=== PATIENT | male | born 1970 | race Two or more races ===

== ENCOUNTER → 2018-11-28 | Outpatient (CLI) | payer BC ==
[~2018-11-28] MED LIST: FLOMAX PO; TYLENOL WITH C1 EACH PO
--- NOTE | 2018-11-28 14:54 | Diagnostic Imaging Report ---
EXAM: CT Abdomen and Pelvis WITHOUT intravenous contrast INDICATION: Right flank pain. COMPARISON: None. TECHNIQUE: Abdomen and pelvis were scanned utilizing a multidetector helical scanner from the lung base to the pubic symphysis without administration of IV contrast. Coronal and sagittal reformations were obtained. IV CONTRAST: None ORAL CONTRAST: None COMPLICATIONS: None RADIATION DOSE: Total DLP: 695.0 mGy*cm Dose modulation, iterative reconstruction, and/or weight based adjustment of the mA/kV was utilized to reduce the radiation dose to as low as reasonably achievable. FINDINGS: LOWER THORAX: Normal. HEPATOBILIARY: No focal liver lesion. Cholelithiasis with no CT evidence of cholecystitis. SPLEEN: No splenomegaly. PANCREAS: No focal masses or ductal dilatation. ADRENALS: No adrenal nodules. KIDNEYS/URETERS: 9 mm proximal right ureteral calculus with resulting mild right hydronephrosis. Additional 2 mm right midpole renal calculus. No left renal calculi. No left hydronephrosis. PELVIC ORGANS/BLADDER: Unremarkable. PERITONEUM / RETROPERITONEUM: No free air or fluid. LYMPH NODES: No lymphadenopathy. VESSELS: Unremarkable. GI TRACT: Mild colonic diverticulosis. No CT evidence of diverticulitis. No abnormal bowel wall thickening. No bowel obstruction. Normal appendix. The stomach is distended and filled with food. BONES AND SOFT TISSUES: No acute osseous injury. No suspicious lytic or blastic lesions. No substantial degenerative change. IMPRESSION: 9 mm proximal right ureter calculus with resulting mild right hydronephrosis. 2 mm right midpole renal calculus. No left renal calculi or hydronephrosis. Findings communicated to Bakari Jarquin NP at 2:48PM on 11/28/2018. Signed by: Nathalie Gaston MD on 11/28/2018 2:50 PM
== END ==
LOC: CT 13:28
PROVIDERS: ATTEND Urology
DX: N20.0 Calculus of kidney (principal)
CPT/HCPCS: 74176

== ENCOUNTER → 2018-11-30 | Day surgery (SDC) | payer BC ==
[~2018-11-30] MED LIST changes: +B&O 60MG R/S 60 MG SUPP PR ONE; +CEFAZOLIN SOD 1 GM/NS 50ML 100 ML IV ONE; +DEXAMETHASONE SOD PHOS INJ 4 MG/ML VIAL ONE; +FENTANYL CITRATE/PF 100MCG/2 ML INJ ONE; +IOPAMIDOL 610MG/1ML 300 MG/ML VIAL IV ONE; +LIDOCAINE HCL 2% LOCAL INJ 5 ML SDV VIAL INJ ONE; +MIDAZOLAM HCL 2 MG/2 ML VIAL ONE; +ONDANSETRON HCL INJ 2MG/ML 2ML 2 MG/ML VIAL ONE; +PROPOFOL IV EMULSION 10 MG/ML 20 ML VIAL ONE; +SEVOFLURANE INHAL SOLN 250 ML PEN BTL ONE
--- OUTSIDE RECORDS SUMMARY | 2018-11-30 09:19 | XMS REPORT ---
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 Allergies, Adverse Reactions, Alerts This patient has no known allergies or adverse reactions. Medications This patient has no known medications. Results Test Description Test Time Test Comments Text Results Atomic Results Result Comments CT ABDOMEN/PELVIS WO 2018-11-28 14:45:00 [facility] [address] [address] Patient Name: CARLOS FLYNN MR #: [id number] : 1970 Age/Sex: 48/M Req #: [id number] [facility] Physician: Ordered by: VARGHESE LAWRENCE MD Report #: [id number] Location: CT Room/Bed: Procedure: [id number] CT/CT ABDOMEN/PELVIS WO Exam Date: 11/28/18 Exam Time: 1350 REPORT STATUS: Signed EXAM: CT Abdomen and Pelvis WITHOUT intravenous contrast INDICATION: Right flank pain. COMPARISON: None. TECHNIQUE: Abdomen and pelvis were scanned utilizing a multidetector helical scanner from the lung base to the pubic symphysis without administration of IV contrast. Coronal and sagittal reformations were obtained. IV CONTRAST: None ORAL CONTRAST: None COMPLICATIONS: None RADIATION DOSE: Total DLP: 695.0 mGy*cm Dose modulation, iterative reconstruction, and/or weight based adjustment of the mA/kV was utilized to reduce the radiation dose to as low as reasonably achievable. FINDINGS: LOWER THORAX: Normal. HEPATOBILIARY: No focal liver lesion. Cholelithiasis with no CT evidence of cholecystitis. SPLEEN: No splenomegaly. PANCREAS: No focal masses or ductal dilatation. ADRENALS: No adrenal nodules. KIDNEYS/URETERS: 9 mm proximal right ureteral calculus with resulting mild right hydronephrosis. Additional 2 mm right midpole renal calculus. No left renal calculi. No left hydronephrosis. PELVIC ORGANS/BLADDER: Unremarkable. PERITONEUM / RETROPERITONEUM: No free air or fluid. LYMPH NODES: No lymphadenopathy. VESSELS: Unremarkable. GI TRACT: Mild colonic diverticulosis. No CT evidence of diverticulitis. No abnormal bowel wall thickening. No bowel obstruction. Normal appendix. The stomach is distended and filled with food. BONES AND SOFT TISSUES: No acute osseous injury. No suspicious lytic or blastic lesions. No substantial degenerative change. IMPRESSION: 9 mm proximal right ureter calculus with resulting mild right hy dronephrosis. 2 mm right midpole renal calculus. No left renal calculi or hydronephrosis. Findings communicated to Bakari Jarquin NP at 2:48PM on 11/28/2018. Signed by: Anne Guerra MD on 11/28/2018 2:50 PM Dictated By: ANNE GUERRA MD [id number] Transcribed By: CHRISTIANO on 11/28/18 1450 COPY TO: VARGHESE LAWRENCE MD
[2018-11-30 12:00] VITALS: BP 121/88
--- NOTE | 2018-11-30 20:08 | Operative Report ---
DATE OF PROCEDURE: 11/30/2018 SURGEON: Taylor Berrios MD SERVICE: Urology. PREOPERATIVE DIAGNOSES: 1. Right renal colic. 2. Nephrolithiasis. 3. Ureterolithiasis. 4. Hydronephrosis. 5. Microhematuria. POSTOPERATIVE DIAGNOSES: 1. Right renal colic. 2. Nephrolithiasis. 3. Ureterolithiasis. 4. Hydronephrosis. 5. Microhematuria. OPERATIONS PERFORMED: 1. Cystoscopy and left retrograde pyelogram done with different instruments, not related to the other side, done as part of the evaluation for hematuria. 2. Right retrograde pyelograms under fluoroscopic control, manipulation of stone and placement of the wire by the stone. 3. Placement of double-J stent 6-Azeri x 26 cm long on the right side. 4. Interpretation of x-ray. 5. Supervision of fluoroscopy. RAPIER INSERTION LOOM FIXER: None. ANESTHESIA: General. CLINICAL INDICATION NOTE: This is a 48-year-old patient, who presented with acute renal colic on the right side, was found to have a large blocking stone in the upper ureter in addition to small calculus in the kidney on the right side. The patient was brought for placement of double-J stent. Description of the procedure was discussed with the patient, potential benefits and complications discussed, explained, and accepted. DESCRIPTION OF PROCEDURE AND FINDINGS: After appropriate level of anesthesia was achieved, the patient was placed in lithotomy position, prepped and draped in the usual sterile fashion. Urethra inspected, it was unremarkable except for some minimally and narrow area in the bulbous urethra. The bladder itself was normal. No tumor or foreign bodies were identified. Open-ended catheter was inserted to the left side and retrograde pyelogram demonstrated a normal ureter and upper collecting system, no hydro. Following this, open-ended catheter inserted to the right side. There was a very high level obstructing stone in the upper ureter and significant hydro above it. Only small amount of contrast was passing. The guide wire was inserted, it was possible to manipulate the stone a little bit up and this allowed to pass the wire above it. Open-ended catheter was also pushed above it. Following this, the wire was kept in place and retrograde pyelogram was ended and open-ended catheter was then removed and a 6-Azeri x 26 cm long double-J stent was manipulated up above the stone into the renal pelvis. The proper position of this was verified by x-ray and endoscopy. Bladder was then irrigated. The scope was removed. B and O suppositories were inserted. The patient was transferred in satisfactory condition to the recovery room. He will be followed by Dr. Jose Berrios. MD SEBASTIÁN Christensen/FEDERICO /[id number]
== END | disposition home or self-care (01) ==
LOC: OR 09:16
PROVIDERS: ATTEND Urology
DX: N20.1 Calculus of ureter (principal); N20.0 Calculus of kidney; N13.30 Unspecified hydronephrosis; R80.9 Proteinuria, unspecified; R39.13 Splitting of urinary stream; R06.83 Snoring; R00.1 Bradycardia, unspecified; Z87.891 Personal history of nicotine dependence
CPT/HCPCS: 52332; 74420; 93005; C1758; C2617; J0690; J1100; J2001; J2250; J2405; J2704; J3010; Q9967

== ENCOUNTER 2021-06-03 11:36 | Observation (INO) | payer BC ==
[~2021-06-03] VITALS: Ht 175.3 cm; Wt 102.1 kg
[~2021-06-03 11:36] MED LIST changes: -B&O 60MG R/S 60 MG SUPP PR ONE; -CEFAZOLIN SOD 1 GM/NS 50ML 100 ML IV ONE; -DEXAMETHASONE SOD PHOS INJ 4 MG/ML VIAL ONE; -FENTANYL CITRATE/PF 100MCG/2 ML INJ ONE; -IOPAMIDOL 610MG/1ML 300 MG/ML VIAL IV ONE; -LIDOCAINE HCL 2% LOCAL INJ 5 ML SDV VIAL INJ ONE; -MIDAZOLAM HCL 2 MG/2 ML VIAL ONE; -ONDANSETRON HCL INJ 2MG/ML 2ML 2 MG/ML VIAL ONE; -PROPOFOL IV EMULSION 10 MG/ML 20 ML VIAL ONE; -SEVOFLURANE INHAL SOLN 250 ML PEN BTL ONE
[2021-06-03] MEDS ORDERED: SODIUM CHLORIDE 0.9% 1000ML 1,000 ML IV STA (11:38)
[2021-06-03] MEDS ORDERED: KETOROLAC TROMETHAMINE 30 MG/ML VIAL IV STA (11:41)
[2021-06-03] MEDS ORDERED: ONDANSETRON HCL INJ 2MG/ML 2ML 2 MG/ML VIAL IV STA (11:41)
[2021-06-03 12:06] LABS: BASOPHILS % 0.3 % (0.0-1.0); EOSINOPHILS % 0.1 % (0.0-6.0); HEMATOCRIT 41.4 % (38.2-49.6); HEMOGLOBIN 12.9 g/dL (14.0-18.0); LYMPHOCYTES # (AUTO) 0.9 (1.0-3.2); LYMPHOCYTES % 10.6 % (18.0-39.1); MEAN CORPUSCULAR HEMOGLOBIN 30.4 pg (28-32); MEAN CORPUSCULAR HGB CONC 31.2 g/dL (31-35); MEAN CORPUSCULAR VOLUME 97.4 fL (81-99); MONOCYTES # (AUTO) 0.6 (0.2-0.8); MONOCYTES % 6.5 % (4.4-11.3); NEUTROPHILS # (AUTO) 7.1 (2.1-6.9); NEUTROPHILS % 82.2 % (38.7-80.0); PLATELET COUNT 129 x10e3/uL (140-360); RED BLOOD COUNT 4.25 x10e6/uL (4.3-5.7); RED CELL DISTRIBUTION WIDTH 12.7 % (11.7-14.4)
[2021-06-03 12:15] LABS: CLARITY,URINE CLEAR (CLEAR); COLOR,URINE YELLOW (YELLOW); KETONES,URINE NEGATIVE (NEGATIVE); LEUKOCYTE ESTERASE ,URINE NEGATIVE (NEGATIVE); NITRITE,URINE NEGATIVE (NEGATIVE); PROTEIN,URINE DIPSTICK TRACE (NEGATIVE); URINE UROBILINOGEN 0.2 mg/dL (0.2 - 1)
[2021-06-03 12:25] LABS: BACTERIA,URINE FEW /HPF; EPITHELIAL CELLS,URINE RARE /LPF; WBC,URINE (MAN) 0-5 /HPF (0-5)
[2021-06-03 12:27] LABS: ALBUMIN 4.4 g/dL (3.5-5.0); ALBUMIN/GLOBULIN RATIO 1.2 (0.8-2.0); ANION GAP 15.9 mmol/L (8-16); CALCIUM 9.5 mg/dL (8.4-10.2); CREATININE, SERUM 1.53 mg/dL (0.72-1.25); POTASSIUM 3.9 mmol/L (3.5-5.1)
[2021-06-03] MEDS ORDERED: ONDANSETRON HCL INJ 2MG/ML 2ML 2 MG/ML VIAL IV PRN (13:45)
[2021-06-03] MEDS ORDERED: Morphine 4mg Syringe 4 MG/ML INJ IV PRN (13:45)
[2021-06-03] MEDS: CEFTRIAXONE 1 GM in SODIUM CHLORIDE 0.9% 50ML 50 ML IV SCH (14:08)
[2021-06-03] MEDS: SODIUM CHLORIDE 0.9% 1000ML 1,000 ML IV SCH ×2 (14:44→23:10)
[2021-06-03 16:50] VITALS: BP 173/97
[2021-06-03 17:04] VITALS: BP 145/80
[2021-06-03 20:00] VITALS: BP 131/69
[2021-06-03 23:08] VITALS: BP 131/69
[2021-06-04] VITALS: BP 128/84
[2021-06-04] MEDS: CEFTRIAXONE 1 GM in SODIUM CHLORIDE 0.9% 50ML 50 ML IV SCH (03:40)
[2021-06-04 04:00] VITALS: BP 117/77
[2021-06-04 05:09] LABS: BASOPHILS % 0.7 % (0.0-1.0); EOSINOPHILS # (AUTO) 0.1 (0.0-0.4); EOSINOPHILS % 2.6 % (0.0-6.0); HEMATOCRIT 35.4 % (38.2-49.6); HEMOGLOBIN 11.1 g/dL (14.0-18.0); LYMPHOCYTES # (AUTO) 1.7 (1.0-3.2); LYMPHOCYTES % 31.3 % (18.0-39.1); MEAN CORPUSCULAR HEMOGLOBIN 30.2 pg (28-32); MEAN CORPUSCULAR HGB CONC 31.4 g/dL (31-35); MEAN CORPUSCULAR VOLUME 96.2 fL (81-99); MONOCYTES # (AUTO) 0.5 (0.2-0.8); MONOCYTES % 8.8 % (4.4-11.3); NEUTROPHILS # (AUTO) 3.1 (2.1-6.9); NEUTROPHILS % 56.2 % (38.7-80.0); PLATELET COUNT 102 x10e3/uL (140-360); RED BLOOD COUNT 3.68 x10e6/uL (4.3-5.7); RED CELL DISTRIBUTION WIDTH 12.6 % (11.7-14.4)
[2021-06-04] MEDS: SODIUM CHLORIDE 0.9% 1000ML 1,000 ML IV SCH (05:45)
[2021-06-04 06:03] LABS: ALBUMIN 3.4 g/dL (3.5-5.0); ALBUMIN/GLOBULIN RATIO 1.2 (0.8-2.0); ANION GAP 12.5 mmol/L (8-16); CALCIUM 8.6 mg/dL (8.4-10.2); CREATININE, SERUM 1.14 mg/dL (0.72-1.25); POTASSIUM 3.5 mmol/L (3.5-5.1)
[2021-06-04] MEDS ORDERED: BELLADONNA/OPIUM 30 MG SUPP RC ONE (06:31)
[2021-06-04] MEDS ORDERED: IOPAMIDOL 300MG/ML 50ML INFUS..BTL IV ONE (06:31)
[2021-06-04 08:38] VITALS: BP 137/88
[2021-06-04] MEDS ORDERED: PHENAZOPYRIDINE HCL 100 MG TAB PO PRN (09:00)
[2021-06-04] MEDS ORDERED: ACETAMINOPHEN/CODEINE 300MG - 30MG TAB PO PRN (09:00)
[2021-06-04] MEDS ORDERED: B&O 60MG R/S 60 MG SUPP PR PRN (09:15)
[2021-06-04] MEDS ORDERED: DITROPAN XL5 MG PO (09:37)
[2021-06-04] MEDS ORDERED: PYRIDIUM200 MG PO (09:38)
[2021-06-04] MEDS ORDERED: GLYCOPYRROLATE INJ 0.2 MG/ML VIAL ONE (12:13)
[2021-06-04] MEDS ORDERED: SEVOFLURANE INHAL SOLN 250 ML PEN BTL ONE (12:13)
[2021-06-04] MEDS ORDERED: LIDOCAINE HCL 2% LOCAL INJ 5 ML SDV VIAL INJ ONE (12:13)
[2021-06-04] MEDS ORDERED: POVIDONE IODINE 0.05% 0.05 % ML PO ONE (12:13)
[2021-06-04] MEDS ORDERED: PROPOFOL IV EMULSION 10 MG/ML 20 ML VIAL ONE (12:13)
[2021-06-04] MEDS ORDERED: ONDANSETRON HCL INJ 2MG/ML 2ML 2 MG/ML VIAL ONE (12:13)
[2021-06-04] MEDS ORDERED: DEXAMETHASONE SOD PHOS INJ 4 MG/ML SDV ONE (12:13)
[2021-06-04] MEDS ORDERED: FENTANYL CITRATE/PF 100MCG/2 ML INJ ONE (12:47)
[2021-06-04] MEDS ORDERED: MIDAZOLAM HCL 2 MG/2 ML VIAL ONE (12:47)
== END 2021-06-04 10:29 | disposition home or self-care (01) ==
LOC: ER 11:39 → ERHOLD 13:41 → MED/SURG2 15:37
PROVIDERS: ADMIT Internal Medicine; ATTEND Internal Medicine
DX: N13.2 Hydronephrosis with renal and ureteral calculous obstruction (principal); Z87.442 Personal history of urinary calculi; Z96.0 Presence of urogenital implants; R31.29 Other microscopic hematuria; D64.9 Anemia, unspecified; Z20.822 Contact with and (suspected) exposure to COVID-19; Z87.891 Personal history of nicotine dependence; N17.9 Acute kidney failure, unspecified; N18.9 Chronic kidney disease, unspecified; E66.9 Obesity, unspecified; Z68.32 Body mass index [BMI] 32.0-32.9, adult
CPT/HCPCS: 36415 ×2; 52356; 74176; 74420; 80053 ×2; 81001; 83970; 84550; 85025 ×2; 87086; 88300; 94799 ×2; 96360; 99284; C1758; C1769; C2617; G0378 ×2; J0696; J1100; J1885; J2001; J2250; J2405 ×2; J2704; J3010; J7030 ×2; Q9967; U0002

== ENCOUNTER → 2021-06-29 | Day surgery (SDC) | payer BC ==
[2021-06-26 11:10] LABS: BASOPHILS # (AUTO) 0.1 (0.0-0.1); EOSINOPHILS # (AUTO) 0.2 (0.0-0.4); HEMATOCRIT 40.4 % (38.2-49.6); LYMPHOCYTES # (AUTO) 1.9 (1.0-3.2); LYMPHOCYTES % 37.3 % (18.0-39.1); MEAN CORPUSCULAR HEMOGLOBIN 30.9 pg (28-32); MEAN CORPUSCULAR HGB CONC 32.2 g/dL (31-35); MONOCYTES # (AUTO) 0.4 (0.2-0.8); MONOCYTES % 8.1 % (4.4-11.3); NEUTROPHILS # (AUTO) 2.5 (2.1-6.9); NEUTROPHILS % 50.2 % (38.7-80.0); PLATELET COUNT 126 x10e3/uL (140-360); RED BLOOD COUNT 4.21 x10e6/uL (4.3-5.7); RED CELL DISTRIBUTION WIDTH 12.6 % (11.7-14.4)
[2021-06-26 11:28] LABS: ANION GAP 12.1 mmol/L (8-16); CALCIUM 9.9 mg/dL (8.4-10.2); CREATININE, SERUM 0.89 mg/dL (0.72-1.25); POTASSIUM 4.1 mmol/L (3.5-5.1)
[~2021-06-29] MED LIST changes: +B&O 60MG R/S 60 MG SUPP PR ONE; +CEFTRIAXONE 1 GM VIAL ONE; +DITROPAN XL5 MG PO; +FENTANYL CITRATE/PF 100MCG/2 ML INJ ONE; +IOPAMIDOL 300MG/ML 50ML INFUS..BTL IV ONE; +KETOROLAC TROMETHAMINE 30 MG/ML VIAL ONE; +MIDAZOLAM HCL 2 MG/2 ML VIAL ONE; +PYRIDIUM200 MG PO
[2021-06-29 09:00] VITALS: BP 126/91
== END | disposition home or self-care (01) ==
LOC: OR 06:14
PROVIDERS: ATTEND Urology
DX: Z46.6 Encounter for fitting and adjustment of urinary device (principal); N20.0 Calculus of kidney; N40.0 Benign prostatic hyperplasia without lower urinary tract symptoms; N28.89 Other specified disorders of kidney and ureter; R00.1 Bradycardia, unspecified; Z01.810 Encounter for preprocedural cardiovascular examination; Z01.812 Encounter for preprocedural laboratory examination; Z01.818 Encounter for other preprocedural examination; Z20.822 Contact with and (suspected) exposure to COVID-19
CPT/HCPCS: 36415; 52352; 74018; 74420; 80048; 84550; 85025; 93005; C1769; J0696; J1885; J2250; J3010; Q9967; U0002

== ENCOUNTER → 2021-11-25 | Outpatient (CLI) | payer BC ==
[~2021-11-25] MED LIST changes: -B&O 60MG R/S 60 MG SUPP PR ONE; -CEFTRIAXONE 1 GM VIAL ONE; -FENTANYL CITRATE/PF 100MCG/2 ML INJ ONE; -IOPAMIDOL 300MG/ML 50ML INFUS..BTL IV ONE; -KETOROLAC TROMETHAMINE 30 MG/ML VIAL ONE; -MIDAZOLAM HCL 2 MG/2 ML VIAL ONE
== END ==
LOC: RAD 15:14
PROVIDERS: ATTEND Urology
DX: N20.0 Calculus of kidney (principal)
CPT/HCPCS: 74018

== ENCOUNTER → 2024-02-23 | Outpatient (REF) | payer OTHER | LOC: RAD 15:35 | PROVIDERS: ATTEND Urology | DX: N20.0 Calculus of kidney (principal) | CPT/HCPCS: 74018 ==

== ENCOUNTER → 2024-06-29 | Day surgery (SDC) | payer OTHER ==
[2024-06-28 14:22] LABS: BASOPHILS % 0.6 % (0.0-1.0); EOSINOPHILS # (AUTO) 0.1 (0.0-0.4); EOSINOPHILS % 2.6 % (0.0-6.0); HEMATOCRIT 39.1 % (38.2-49.6); LYMPHOCYTES # (AUTO) 1.7 (1.0-3.2); LYMPHOCYTES % 33.8 % (18.0-39.1); MEAN CORPUSCULAR HEMOGLOBIN 30.8 pg (28-32); MEAN CORPUSCULAR HGB CONC 33.2 g/dL (31-35); MEAN CORPUSCULAR VOLUME 92.7 fL (81-99); MONOCYTES # (AUTO) 0.5 (0.2-0.8); MONOCYTES % 9.3 % (4.4-11.3); NEUTROPHILS # (AUTO) 2.7 (2.1-6.9); NEUTROPHILS % 53.5 % (38.7-80.0); PLATELET COUNT 118 x10e3/uL (140-360); RED BLOOD COUNT 4.22 x10e6/uL (4.3-5.7); RED CELL DISTRIBUTION WIDTH 12.6 % (11.7-14.4); WHITE BLOOD COUNT 5.03 x10e3/uL (4.8-10.8)
[2024-06-28 14:47] LABS: ANION GAP 12.9 mmol/L (8-16); CALCIUM 9.5 mg/dL (8.4-10.2); CREATININE, SERUM 0.89 mg/dL (0.72-1.25); POTASSIUM 3.9 mmol/L (3.5-5.1); URIC ACID 5.8 mg/dL (4.8-8.0)
[~2024-06-29] MED LIST changes: +DEXAMETHASONE SOD PHOS INJ 4 MG/ML SDV ONE; +FENTANYL CITRATE/PF 100MCG/2 ML INJ ONE; +LIDOCAINE HCL 2% LOCAL INJ 5 ML SDV VIAL INJ ONE; +ONDANSETRON HCL INJ 2MG/ML 2ML 2 MG/ML VIAL ONE; +OZEMPIC0.25 MG/02 SC; +PHENAZOPYRIDINE HCL 100 MG TAB ONE; +PROPOFOL IV EMULSION 10 MG/ML 20 ML VIAL ONE; +SEVOFLURANE INHAL SOLN 250 ML PEN BTL ONE
[2024-06-29] MEDS: LACTATED RINGER'S 1,000 ML ONE (06:47)
[2024-06-29] MEDS: CEFTRIAXONE 1 GM VIAL ONE (06:48)
[2024-06-29] MEDS: PHENAZOPYRIDINE HCL 100 MG TAB PO ONE ×2 (09:05)
[2024-06-29 09:40] VITALS: BP 135/85; PULSE 54; RESP 19; O2SAT 98
[2024-06-29 11:12] LABS: CALCIUM 9.7 mg/dL (8.7-10.2)
== END | disposition home or self-care (01) ==
LOC: OR 05:45
PROVIDERS: ATTEND Urology
DX: N20.0 Calculus of kidney (principal); N40.0 Benign prostatic hyperplasia without lower urinary tract symptoms; E66.01 Morbid (severe) obesity due to excess calories; Z01.810 Encounter for preprocedural cardiovascular examination; Z01.812 Encounter for preprocedural laboratory examination; Z01.818 Encounter for other preprocedural examination; Z79.85 Long-term (current) use of injectable non-insulin antidiabetic drugs
CPT/HCPCS: 36415; 50590; 74018; 80048; 83970; 84550; 85025; 93005; C1758; J0696; J1100; J2003; J2405; J2704; J3010; J7121